=== PATIENT | female | born 1955 | race African-American/Black ===

== ENCOUNTER 2018-12-22 10:47 | Day surgery (SDC) | payer OTHER ==
[2018-12-14 12:07] VITALS: BMI 24.4
--- NOTE | 2018-12-22 08:07 | HP ---
[facility] - Chief Complaint Chief Complaint: right knee pain - Past Medical History Allergies/Adverse Reactions: Allergies Allergy/AdvReac Type Severity Reaction Status Date / Time No Known Drug Allergies Allergy Verified 12/14/18 11:57 - Current Medications Current Medications: Home Medications Medication Instructions Recorded Aspirin [ASA -] 325 mg PO DAILY 12/14/18 Olmesartan/Hydrochlorothiazide 1 each PO DAILY 12/14/18 [Benicar Hct 40-25 mg Tablet] Rosuvastatin Calcium [Crestor] 20 mg PO DAILY 12/14/18 [facility]ellite Physical Exam - Physical Examination General Appearance: Well Nourished, Well Developed, Alert & Oriented x3 ENT: Clear Lung: Normal air movement Heart: Regular rate & rhythm Extremities: Other (right knee- + swelling, + ttp medially, decr rom, nvi, xrays show grade 4 medial compartment djd) Neurological: Intact, Alert, Oriented Satellite Impression/Plan - Impression/Plan Impression: right knee medial djd Operative Procedure: right medial [place]eles ukr Date to be Performed: 12/22/18
[2018-12-22] MEDS ORDERED: CEFAZOLIN 2 GM in DEXTROSE 5%-WATER - 50 ML IVPB ONE (11:02)
[2018-12-22] MEDS ORDERED: CELECOXIB 200 MG CAPSULE PO ONE (11:02)
[2018-12-22] MEDS ORDERED: TRANEXAMIC ACID 1000 MG/10 ML VIAL IVPUSH ONE (11:02)
[2018-12-22] MEDS ORDERED: ROPIVICAINE 0.2%/MORPH PF/KETOROLAC - 51ML DISP.SYRINGE IA ONE ×2 (11:02→13:05)
[2018-12-22] MEDS ORDERED: oxyCODONE HCL 5 MG TABLET PO PRN (11:59)
[2018-12-22] MEDS ORDERED: ONDANSETRON 4 MG/2 ML VIAL IVPUSH PRN ×2 (11:59→15:55)
[2018-12-22] MEDS ORDERED: MIDAZOLAM HCL 2 MG/2 ML SINGLE DOSE VIAL ONE (12:50)
[2018-12-22] MEDS ORDERED: DEXAMETHASONE SOD PHOSPHATE/PF 10 MG/ML SDV ONE (12:50)
[2018-12-22] MEDS ORDERED: BUPIVACAINE HCL/PF 0.5% (5 MG/ML) 30 ML VIAL IJ ONE (12:51)
[2018-12-22] MEDS ORDERED: SODIUM CHLORIDE 0.9% P/F 10 ML VIAL IJ ONE (12:51)
[2018-12-22] MEDS ORDERED: GELATIN, ABSORBABLE 12-7MM EACH SPONGE TP ONE (13:04)
[2018-12-22] MEDS ORDERED: THROMBIN (RECOMBINANT) 5,000 UNIT VIAL TP ONE (13:04)
[2018-12-22] MEDS ORDERED: ceFAZolin SODIUM 1 GM VIAL ONE ×2 (13:05→13:40)
[2018-12-22] MEDS ORDERED: TRANEXAMIC ACID 1000 MG/10 ML VIAL ONE (13:40)
[2018-12-22] MEDS ORDERED: ACETAMINOPHEN 1000 MG/100 ML VIAL (NON FORMULARY) IVPB ONE (15:00)
[2018-12-22] MEDS ORDERED: MAG HYDROX/AL HYDROX/SIMETH 30 ML UNIT-DOSE CUP PO PRN (15:55)
--- NOTE | 2018-12-22 15:58 | OP ---
Operative Note - Note: Operative Date: 12/22/18 (iam) Pre-Operative Diagnosis: right knee medial djd Operation: right medial [place]eles ukr Post-Operative Diagnosis: Same as Pre-op Surgeon: El Gerard Patternmaker Pressure Cast: Rob Hopper Anesthesia: Spinal, Local Specimens Removed: bone fragments Estimated Blood Loss (mls): 100 Operative Report Dictated: Yes
[2018-12-22] MEDS ORDERED: LACTATED RINGERS SOLUTION 1,000 ML IV SCH (16:00)
[2018-12-22] MEDS ORDERED: ACETAMINOPHEN INJECTION 100 ML IVPB ONE (16:12)
[2018-12-22] MEDS: LACTATED RINGERS SOLUTION 1,000 ML IV SCH (18:17)
--- NOTE | 2018-12-22 19:18 | SPEC ---
DATE OF OPERATION: 12/22/2018 PREOPERATIVE DIAGNOSIS: Degenerative joint disease, right knee. POSTOPERATIVE DIAGNOSIS: Degenerative joint disease, right knee. PROCEDURE: Right medial unicompartmental knee replacement with robotic-assisted navigation (MAKOplasty) and patelloplasty. SURGICAL ATTENDING: El Gerard MD LIVE OUT NANNY: DIANNE Muñoz ANESTHESIA: Regional and spinal. CLOSURE: A 3 femur, 3 tibia, an 8 polyethylene; No. 1 Vicryl fascia, 0 and 2-0 subcutaneous, 3-0 Monocryl subcuticular with skin glue, 4-0 undyed Vicryl for pin sites. ESTIMATED BLOOD LOSS: Less than 100 mL. COMPLICATIONS: None. CONDITION: To recovery in stable condition. DESCRIPTION OF OPERATIVE PROCEDURE: Patient was taken to the operating room on December 22, 2018. Spinal and regional anesthesia was administered by the anesthesiologist. IV Kefzol and TXA were administered prophylactically prior to the case. A well-padded pneumatic tourniquet was placed on the right proximal thigh. The right lower extremity was prepped and draped in the usual sterile fashion. A 6- to 8-cm longitudinal incision over the medial side of the patella from mid patella to the tibial tubercle was incised and was deepened using Bovie cautery. An arthrotomy was then made just medial to the patellar tendon and the patella. Subperiosteal dissection was done on the anteromedial proximal tibia all the way back to the MCL. Partial fat pad excision was performed, exposing the medial compartment. Checkpoint was malleable at both the femur and the tibia. Using 2 stab incisions in the femur 1 handbreadth above the patella on the femur and 2 stab incisions 1 handbreadth below the tibial tubercle on the tibia, 2 threaded pins were drilled in parallel fashion from anterior to posterior, going through the proximal cortex and engaging the 2nd but not through the 2nd cortex. To these threaded pins were fastened navigation rays, 1 on the femur and 1 on the tibia. The knee was then registered with the navigation device with the center of the rotation of the hip, medial and lateral malleoli, and multiple points both on the femur and on the tibia. Excellent registration of less than 0.5 mm was obtained on both to ensure adequate registration. The navigation device ensured us to "pop the bubbles" both on the femur and the tibia and that was performed and passed registration. The knee was then thoroughly inspected to remove all osteophytes both on the femur and the tibia. Also, osteophytes on the trochlea and on the surface of the patella were removed as well. The knee was then stressed with valgus stress at 0, 30, 60, 90, and 120 degrees of flexion. This propagated a looseness/tightness graft. The virtual positions of the components were then optimized to ensure an excellent graft. The tracking also was optimized by manipulating the virtual position to ensure that the femoral component articulated with the central portion of the tibial component. The robot was then brought into the field and was registered. The robot was used to bur the bone on both the femur and the tibia as to the specifications of the components. The trial components were then applied on both the femur and the tibia with an appropriate polyethylene insert. The knee was taken through a range of motion and found to have full extension, full flexion, with excellent stability. Stressing the graft revealed an excellent looseness/tightness graft with the trial components in place. The trial components were removed. The knee was thoroughly irrigated with a copious amount of antibiotic irrigation. The real components were then cemented in using modern generation cement techniques with antibiotic cement and pressurization. After the cement was hardened, the knee was thoroughly inspected to remove out all excess cement. The real polyethylene insert was then clipped into place. Range of motion and stability were again assessed to be as they were with the trials. At this time, the pins and the checkpoints were removed. The knee was again thoroughly irrigated. The arthrotomy was closed with No. 1 Vicryl, 0 and 2-0 subcutaneous, and 3-0 Monocryl subcuticular with skin glue for the skin, 4-0 undyed Vicryl for the pin sites. Sterile pressure dressing was placed over the knee. Patient awakened from anesthesia and transferred to recovery in stable condition. No complications. Estimated blood loss negligible. X-rays postoperatively revealed excellent position of the components. Maira [id number]
[2018-12-22] MEDS: SENNOSIDES/DOCUSATE COMBO (SENNA PLUS) TABLET (UD) PO SCH (21:12)
[2018-12-22] MEDS: oxyCODONE HCL 10 MG SUSTAINED ACTING TABLET PO SCH (21:12)
[2018-12-22] MEDS ORDERED: ROSUVASTATIN CA 20 MG TABLET (FP) PO SCH (22:00)
[2018-12-22] MEDS: CEFAZOLIN 2 GM/D5W 2 GM/50 ML ML IVPB SCH (22:11)
[2018-12-23] MEDS: CEFAZOLIN 2 GM/D5W 2 GM/50 ML ML IVPB SCH (06:50)
[2018-12-23] MEDS: oxyCODONE HCL 5 MG TABLET PO PRN ×2 (06:59→10:00)
--- NOTE | 2018-12-23 09:03 | PN ---
Progress Note (short form) - Note Progress Note: Ortho Pt seen and examined s/p right medial angeles ukr pod #1 Selected Entries 12/23/18 06:00 Temperature 98.2 F Pulse Rate 76 Respiratory 18 Rate Blood Pressure 124/68 dressing c/d/i, calf soft, nt rom 0-90, nvi a/p PT dvt ppx pain control d/c home today f/u in 1 week
--- NOTE | 2018-12-23 09:04 | DS ---
Physical Examination Vital Signs: Vital Signs Temperature 98.2 F 12/23/18 06:00 Pulse Rate 76 12/23/18 06:00 Respiratory Rate 18 12/23/18 06:00 Blood Pressure 124/68 12/23/18 06:00 O2 Sat by Pulse Oximetry (%) 96 12/23/18 08:47 Discharge Summary Reason For Visit: OSTEOARTHRITIS Procedures: Principal: right medial angeles ukr Hospital Course: admitted for elective right medial [place]eles ukr, post-op as per protocol, stable for d/c Condition: Good - Instructions Diet, Activity, Other Instructions: Post-op Instructions-Partial Knee Replacement Call the office for a follow-up appointment in 1 week - [phone] Aspirin 325mg daily for 6 weeks. Pain medication was sent into your pharmacy. Apply Graduated Compression Stockings (TEDs) to both lower extremities- remove daily for hygiene ONLY Apply Sequential Compression Device (SCDs) to both Lower extremities remove for PT and hygiene ONLY Apply cold packs to affected area for 15 minutes every 2 hours. Physical Therapist will come to your home for the first 5 days. You will be set up with outpatient PT at your first post-operative visit. Patient may ambulate as tolerated-encourage self care (at least every 2-3 hours while awake) with walker or cane Maintain Aquacel (waterproof) dressing to operative wound (will be removed by surgeon at first office visit) Shower with Aquacel dressing in place-if Aquacel integrity compromised, remove and apply dry sterile dressing and notify Orthopedist. DO NOT SHOWER unless Orthopedists approves without Aquacel dressing CONTACT THE OFFICE FOR ANY CHANGE IN YOUR CONDITION (for example-fever greater than 102 degrees, excessive bleeding from operative site, purulent drainage, severe swelling or pain) GO TO THE EMERGENCY ROOM IF THERE IS A MEDICAL EMERGENCY Knee Precautions: * Keep a rolled towel under affected heel while in bed or chair (to keep knee in extension) * Keep affected leg elevated except during mealtimes * DO NOT PLACE PILLOW UNDER AFFECTED KNEE * If you have any questions, please do not hesitate to call the office - . Referrals: El Gerard MD [Staff Physician] - Disposition: VNS/HOME HEALTH CARE - Home Medications Comprehensive Discharge Medication List: Ambulatory Orders RX: Aspirin [ASA -] 325 mg PO DAILY 12/14/18 RX: Olmesartan/Hydrochlorothiazide [Benicar Hct 40-25 mg Tablet] 1 each PO DAILY 12/14/18 RX: Rosuvastatin Calcium [Crestor] 20 mg PO DAILY 12/14/18 Oxycodone HCl/Acetaminophen [Percocet 5-325 mg Tablet -] 1 - 2 tab PO Q6H #50 tab MDD 8 12/22/18
[2018-12-23 09:45] VITALS: BP 114/64; PULSE 72; TEMP 98
[2018-12-23] MEDS: oxyCODONE HCL 10 MG SUSTAINED ACTING TABLET PO SCH (09:45)
[2018-12-23] MEDS: SENNOSIDES/DOCUSATE COMBO (SENNA PLUS) TABLET (UD) PO SCH (09:45)
[2018-12-23] MEDS ORDERED: PANTOPRAZOLE 40 MG TABLET (FP) PO SCH (10:00)
[2018-12-23] MEDS ORDERED: HYDROCHLOROTHIAZIDE 25 MG TABLET (FP) PO SCH (10:00)
[2018-12-23] MEDS ORDERED: PATIENT'S OWN MEDICATION (NON-FORMULARY) (Olmesartan/Hydrochlorothiazide [Benicar Hct 40-2 PO SCH (10:00)
[2018-12-23] MEDS ORDERED: MULTIVITAMINS (DAILY MVI) TABLET (FP) PO SCH (10:00)
[2018-12-23] MEDS ORDERED: ASPIRIN 325 MG TABLET PO SCH (10:00)
[2018-12-23] MEDS ORDERED: VALSARTAN 160 MG TABLET (UD) PO SCH (10:00)
[2018-12-23] MEDS: LACTATED RINGERS SOLUTION 1,000 ML IV SCH (12:11)
== END 2018-12-23 13:56 | disposition home health service (06) ==
LOC: FASU 10:47 → FM/S 17:25 → UNDOADMOB 17:25 → FM/S 17:25 → FASU 12-23 13:56
PROVIDERS: ATTEND Orthopaedic Surgery
PROC: 8E0YXBZ Computer Assisted Procedure of Lower Extremity (ICD-10-PCS; 2018-12-22)
PROC: 8E0Y0CZ Robotic Assisted Procedure of Lower Extremity, Open Approach (ICD-10-PCS; 2018-12-22)
PROC: 0SRC0L9 Replacement of Right Knee Joint with Medial Unicondylar Synthetic Substitute, Cemented, Open Approach (ICD-10-PCS; principal; 2018-12-22 14:24)
DX: M17.11 Unilateral primary osteoarthritis, right knee (principal)
CPT/HCPCS: 20985; 27446; C1776; S2900; 73560-TC-RT-FY; 94760; 97116-GP; 97163-GP; J0131

== ENCOUNTER 2020-08-29 08:24 | Day surgery (SDC) | payer OTHER ==
[2020-08-17 11:45] VITALS: BMI 25.8
[~2020-08-29 08:24] MED LIST: BUPIVICAINE 0.25%/MORPH PF/KETOROLAC - 51ML DISP.SYRINGE IA ONE; CEFAZOLIN 2 GM in DEXTROSE 5%-WATER - 50 ML IVPB ONE
[2020-08-29] MEDS ORDERED: MIDAZOLAM HCL 2 MG/2 ML SINGLE DOSE VIAL ONE ×2 (09:23→12:14)
[2020-08-29] MEDS ORDERED: ROPIVACAINE HCL 0.5% 30ML VIAL ONE (09:23)
[2020-08-29] MEDS ORDERED: TRANEXAMIC ACID 1000 MG/10 ML VIAL IVPUSH ONE (11:00)
[2020-08-29] MEDS ORDERED: CELECOXIB 200 MG CAPSULE PO ONE (11:00)
[2020-08-29] MEDS ORDERED: THROMBIN (RECOMBINANT) 5,000 UNIT VIAL TP ONE (11:09)
[2020-08-29] MEDS ORDERED: ceFAZolin SODIUM 1 GM VIAL ONE (11:09)
[2020-08-29] MEDS ORDERED: BUPIVACAINE HCL 50 ML ONE (11:43)
[2020-08-29] MEDS ORDERED: PROPOFOL 20 ML ONE (12:19)
[2020-08-29] MEDS ORDERED: TRANEXAMIC ACID 1000 MG/10 ML VIAL ONE (12:19)
[2020-08-29] MEDS ORDERED: BUPIVICAINE 0.25%/MORPH PF/KETOROLAC - 51ML DISP.SYRINGE IA ONE ×3 (12:25→13:25)
[2020-08-29] MEDS ORDERED: THROMBIN (BOVINE) 5,000 UNIT VIAL TP ONE (13:24)
[2020-08-29] MEDS ORDERED: ONDANSETRON 4 MG/2 ML VIAL IVPUSH PRN (14:04)
[2020-08-29] MEDS ORDERED: ACETAMINOPHEN 1000 MG/100 ML VIAL (NON FORMULARY) IVPB ONE (14:05)
[2020-08-29] MEDS ORDERED: oxyCODONE HCL 5 MG TABLET PO PRN (14:05)
[2020-08-29] MEDS ORDERED: ACETAMINOPHEN INJECTION 100 ML IVPB ONE (14:20)
[2020-08-29] MEDS: LACTATED RINGERS SOLUTION 1,000 ML IV SCH (15:00)
[2020-08-29] MEDS: oxyCODONE HCL 5 MG TABLET PO PRN ×2 (17:58→21:54)
[2020-08-29] MEDS: CEFAZOLIN 2 GM/D5W 2 GM/50 ML ML IVPB SCH (17:58)
[2020-08-30] MEDS: CEFAZOLIN 2 GM/D5W 2 GM/50 ML ML IVPB SCH (01:12)
[2020-08-30] MEDS: oxyCODONE HCL 5 MG TABLET PO PRN ×3 (05:19→14:09)
[2020-08-30] MEDS ORDERED: HYDROCHLOROTHIAZIDE 25 MG TABLET (FP) PO SCH (10:00)
[2020-08-30] MEDS ORDERED: ASPIRIN 325 MG ENTERIC COATED TABLET (FP) PO SCH (10:00)
[2020-08-30] MEDS ORDERED: LOSARTAN POTASSIUM 50 MG TABLET PO SCH (10:00)
[2020-08-30] MEDS ORDERED: ASPIRIN 325 MG TABLET PO SCH (10:00)
[2020-08-30] MEDS ORDERED: PATIENT'S OWN MEDICATION (NON-FORMULARY) (Olmesartan/Hydrochlorothiazide [Benicar Hct 40-2 PO SCH (10:00)
[2020-08-30] MEDS ORDERED: PT OWN MED DRAWER 7, Y5N ONE (10:10)
[2020-08-30 14:25] VITALS: BP 116/59; PULSE 90; TEMP 99.1
[2020-08-30] MEDS: LACTATED RINGERS SOLUTION 1,000 ML IV SCH (16:31)
[2020-08-30] MEDS ORDERED: ROSUVASTATIN CA 20 MG TABLET (FP) PO SCH (22:00)
== END 2020-08-30 16:35 | disposition home health service (06) ==
LOC: FASUSAT 08:24 → FM/S 08:24 → UNDOADMIN 15:03 → FM/S 15:03 → FASUSAT 08-30 16:35
PROVIDERS: ATTEND Orthopaedic Surgery
PROC: 8E0YXBZ Computer Assisted Procedure of Lower Extremity (ICD-10-PCS; 2020-08-29)
PROC: 0SRD0J9 Replacement of Left Knee Joint with Synthetic Substitute, Cemented, Open Approach (ICD-10-PCS; principal; 2020-08-29 12:19)
DX: M17.12 Unilateral primary osteoarthritis, left knee (principal)
CPT/HCPCS: 20985; 27446; C1776; S2900; 73560-TC-LT-FY; 94760; 97010-GP; 97116-GP; 97163-GP; J0131